=== PATIENT | male | born 1970 | race Caucasian/White ===

== ENCOUNTER 2018-07-14 17:18 | Emergency (ER) | payer SELFPAY ==
[~2018-07-14] VITALS: Ht 188 cm; Wt 75.7 kg
[~2018-07-14 17:18] MED LIST: NAPR-1071 PO
[2018-07-14] MEDS ORDERED: BUSPAR (17:26)
[2018-07-14] MEDS ORDERED: [UNRECOGNIZED DRUG - OTHER] (17:27)
--- NOTE | 2018-07-14 17:38 | NUR ---
PT HAS OLD BRUISING UNDER BILAT EYES.
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
[2018-07-14] MEDS ORDERED: HYDROcodone/APAP 7.5 MG/325 MG (LORTAB, LORCET PLUS) TABLET PO STA (19:07)
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
[2018-07-14] MEDS ORDERED: ACHD5005 PO (19:26)
[2018-07-14 19:32] VITALS: BP 157/104
== END 2018-07-14 19:32 | disposition home or self-care (01) ==
LOC: EDUNIT# 17:18 → ER 17:19
DX: S02.2XXA Fracture of nasal bones, initial encounter for closed fracture (principal); H53.8 Other visual disturbances; R40.2142 Coma scale, eyes open, spontaneous, at arrival to emergency department; R40.2252 Coma scale, best verbal response, oriented, at arrival to emergency department; R40.2362 Coma scale, best motor response, obeys commands, at arrival to emergency department; F17.200 Nicotine dependence, unspecified, uncomplicated; Y04.0XXA Assault by unarmed brawl or fight, initial encounter
CPT/HCPCS: 70450; 70486

== ENCOUNTER 2019-01-30 22:08 | Emergency (ER) | payer OTHER ==
[~2019-01-30] VITALS: Ht 188 cm; Wt 116.6 kg
[~2019-01-30 22:08] MED LIST changes: +ACHD5005 PO; +BUSPAR; +[UNRECOGNIZED DRUG - OTHER]
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
[2019-01-30 22:41] LABS: BASOPHILS % (AUTO) 1 % (0-10); EOSINOPHILS # (AUTO) 0.4 10^3/uL (0.0-0.3); EOSINOPHILS % (AUTO) 5 % (0-10); HEMATOCRIT 43 % (40-54); HEMOGLOBIN 14.9 G/DL (13.3-17.7); LYMPHOCYTES # (AUTO) 2.8 X 10^3 (1.0-4.0); LYMPHOCYTES % (AUTO) 34 % (12-44); MEAN CORPUSCULAR HEMOGLOBIN 30 PG (25-34); MEAN CORPUSCULAR HGB CONC 35 G/DL (32-36); MEAN CORPUSCULAR VOLUME 86 FL (80-99); MEAN PLATELET VOLUME 9.3 FL (7.4-10.4); MONOCYTES # (AUTO) 0.8 X 10^3 (0.0-1.0); MONOCYTES % (AUTO) 9 % (0-12); NEUTROPHILS # (AUTO) 4.2 X 10^3 (1.8-7.8); NEUTROPHILS % (AUTO) 51 % (42-75); PLATELET COUNT 237 10^3/uL (130-400); RED CELL DISTRIBUTION WIDTH 13.5 % (10.0-14.5); WHITE BLOOD COUNT 8.3 10^3/uL (4.3-11.0)
[2019-01-30] MEDS ORDERED: FAMOTIDINE 20MG/2ML IV (PEPCID) IV STA (23:03)
[2019-01-30 23:04] LABS: INR 1.1 (0.8-1.4); PROTHROMBIN TIME PATIENT 14.2 SEC (12.2-14.7)
[2019-01-30 23:10] LABS: ALANINE AMINOTRANSFERASE 27 U/L (0-55); ALBUMIN 3.8 GM/DL (3.2-4.5); ALKALINE PHOSPHATASE 100 U/L (40-136); BILIRUBIN,TOTAL 0.2 MG/DL (0.1-1.0); BUN/CREATININE RATIO 11; CALCIUM 8.8 MG/DL (8.5-10.1); CARBON DIOXIDE 21 MMOL/L (21-32); CHLORIDE 107 MMOL/L (98-107); CREATININE SERUM 0.79 MG/DL (0.60-1.30); GFR ESTIMATED > 60; GLUCOSE 88 MG/DL (70-105); MAGNESIUM 1.9 MG/DL (1.6-2.4); POTASSIUM 3.6 MMOL/L (3.6-5.0); SODIUM 138 MMOL/L (135-145); TOTAL PROTEIN 6.7 GM/DL (6.4-8.2)
[2019-01-30] MEDS ORDERED: ANTACID SUSP 30 ML UDC (MYLANTA) PO ONE (23:15)
[2019-01-30] MEDS ORDERED: LIDOCAINE 2% VISCOUS 15 ML UDC PO ONE (23:15)
[2019-01-31 01:35] VITALS: BP 141/94
--- NOTE | 2019-01-31 07:02 | Diagnostic Imaging Report ---
Indication: Chest pain. Examination: Single view chest 01/30/2019. Comparison: 10/20/2015 Findings: The heart is unremarkable. There is pulmonary vascular congestion. Bibasilar atelectasis. No significant effusions or pneumothorax. Impression: 1. Pulmonary vascular congestion. 2. Mild bibasilar atelectasis. Dictated by: Dictated on workstation # [id number]
== END 2019-01-31 01:37 | disposition home or self-care (01) ==
LOC: EDUNIT# 22:08 → ER 22:10
DX: R07.9 Chest pain, unspecified (principal); R10.13 Epigastric pain
CPT/HCPCS: 36415; 71045; 80053; 83735; 83874; 84484; 85025; 85610; 85730; 93005; 93041

== ENCOUNTER → 2019-04-21 | Outpatient (REF) ==
--- NOTE | 2019-04-21 10:43 | Diagnostic Imaging Report ---
INDICATION: Left elbow pain. TIME OF EXAM: 10:33 AM 3 views of the left elbow were obtained. FINDINGS: Alignment is normal. No fracture, dislocation or effusion is seen. Tiny well-corticated osseous densities adjacent to the medial epicondyle are noted and appear chronic. IMPRESSION: No acute abnormality is detected. Dictated by: Dictated on workstation # [id number]
== END | disposition home or self-care (01) ==
LOC: OCC 10:10
PROVIDERS: ATTEND Family Medicine
CPT/HCPCS: 73080

== ENCOUNTER 2019-09-03 06:11 | Emergency (ER) | payer SELFPAY ==
[~2019-09-03] VITALS: Ht 187 cm; Wt 115.0 kg
[2019-09-03] MEDS ORDERED: morphine INJ 10 MG/ML 1ML (SYR OR VIAL) IV STA (06:19)
[2019-09-03] MEDS ORDERED: KETOROLAC 30 MG/ML VIAL IVP STA (06:23)
[2019-09-03] MEDS ORDERED: ASPIRIN 81 MG CHEW (CHILDREN'S ASA) PO ONE (06:30)
[2019-09-03 06:32] LABS: BASOPHILS % (AUTO) 0 % (0-10); EOSINOPHILS # (AUTO) 0.5 10^3/uL (0.0-0.3); EOSINOPHILS % (AUTO) 4 % (0-10); HEMATOCRIT 47 % (40-54); HEMOGLOBIN 16.2 G/DL (13.3-17.7); LYMPHOCYTES % (AUTO) 25 % (12-44); MEAN CORPUSCULAR HEMOGLOBIN 29 PG (25-34); MEAN CORPUSCULAR HGB CONC 35 G/DL (32-36); MEAN CORPUSCULAR VOLUME 83 FL (80-99); MEAN PLATELET VOLUME 9.7 FL (7.4-10.4); MONOCYTES # (AUTO) 1.1 X 10^3 (0.0-1.0); MONOCYTES % (AUTO) 9 % (0-12); NEUTROPHILS # (AUTO) 7.8 X 10^3 (1.8-7.8); NEUTROPHILS % (AUTO) 63 % (42-75); PLATELET COUNT 295 10^3/uL (130-400); RED CELL DISTRIBUTION WIDTH 13.6 % (10.0-14.5); WHITE BLOOD COUNT 12.4 10^3/uL (4.3-11.0)
[2019-09-03 06:48] LABS: FIBRIN DEGRADATION PRODUCTS 0.43 UG/ML (0.00-0.49); PROTHROMBIN TIME PATIENT 13.7 SEC (12.2-14.7)
[2019-09-03 06:49] LABS: ALBUMIN 4.1 GM/DL (3.2-4.5); BILIRUBIN,TOTAL 0.5 MG/DL (0.1-1.0); CARBON DIOXIDE 18 MMOL/L (21-32); CHLORIDE 105 MMOL/L (98-107); POTASSIUM 4.6 MMOL/L (3.6-5.0); SODIUM 134 MMOL/L (135-145); TOTAL PROTEIN 7.5 GM/DL (6.4-8.2)
--- NOTE | 2019-09-03 06:55 | Diagnostic Imaging Report ---
EXAM: CHEST 1 VIEW, AP/PA ONLY INDICATION: Chest wall pain. COMPARISON: 01/30/2019. FINDINGS: Normal heart size and central pulmonary vascularity. No focal pulmonary opacity. No pleural effusion or pneumothorax. No acute osseous findings. IMPRESSION: No acute cardiopulmonary findings. Dictated by: Dictated on workstation # [id number]
[2019-09-03] MEDS ORDERED: morphine INJ 10 MG/ML 1ML (SYR OR VIAL) IVP ONE (07:00)
[2019-09-03 07:05] LABS: ALANINE AMINOTRANSFERASE 37 U/L (0-55); ALKALINE PHOSPHATASE 117 U/L (40-136); BUN/CREATININE RATIO 16; CREATININE SERUM 0.93 MG/DL (0.60-1.30); GFR ESTIMATED > 60; GLUCOSE 101 MG/DL (70-105); LIPASE 161 U/L (8-78); MAGNESIUM 2.1 MG/DL (1.6-2.4)
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
[2019-09-03] MEDS ORDERED: LACTATED RINGERS 1,000 ML IV ONE (07:49)
[2019-09-03] MEDS ORDERED: NS 100 ML (IVPB) BAG IV ONE (08:15)
[2019-09-03] MEDS ORDERED: IOHEXOL 350 MG/ML 100 ML (OMNIPAQUE 350) VIAL IV ONE (08:15)
[2019-09-03] MEDS ORDERED: HOLD METFORMIN - RECEIVED CONTRAST 20 ML VIAL IV SCH (08:15)
--- NOTE | 2019-09-03 08:31 | Diagnostic Imaging Report ---
PROCEDURE: CT abdomen and pelvis with contrast. TECHNIQUE: Multiple contiguous axial images were obtained through the abdomen and pelvis after administration of intravenous contrast. Auto Exposure Controls were utilized during the CT exam to meet ALARA standards for radiation dose reduction. INDICATION: Left chest wall pain No prior examinations are available for comparison. FINDINGS: The heart size is normal. Dependent atelectasis in the lung bases. The liver is normal in size without focal lesions. There is no biliary ductal dilatation. Gallbladder is unremarkable. Spleen is normal. Pancreas and adrenal glands are unremarkable. Kidneys normal in appearance. Aorta is nonaneurysmal. Bowel gas pattern is nonspecific. There is no free air. There is no ascites. There are no focal inflammatory changes. The appendix is normal. Bladder is normal. There is no pelvic mass, adenopathy or free fluid. There are mild degenerative changes in the spine. IMPRESSION: No acute abnormality in the abdomen or pelvis. Dictated by: Dictated on workstation # [id number]
[2019-09-03 09:44] VITALS: BP 138/92
== END 2019-09-03 09:44 | disposition home or self-care (01) ==
LOC: EDUNIT# 06:11 → ER 06:16
DX: R07.89 Other chest pain (principal); R74.8 Abnormal levels of other serum enzymes; F17.210 Nicotine dependence, cigarettes, uncomplicated; F12.90 Cannabis use, unspecified, uncomplicated
CPT/HCPCS: 36415; 71045; 74177; 80053; 83690; 83735; 83874; 84484; 85025; 85379; 85610; 85730; 93041

== ENCOUNTER → 2021-07-22 | Outpatient (CLI) | payer BC ==
--- NOTE | 2021-07-22 17:53 | Diagnostic Imaging Report ---
PROCEDURE: MR imaging cervical spine without contrast. TECHNIQUE: Multiplanar, multisequence MR imaging of the cervical spine was performed without contrast. INDICATION: Neck pain COMPARISON: CT from 10/20/2015 FINDINGS: No acute fracture is seen in the cervical spine. Alignment is normal. There is no spondylolisthesis. The disc heights are generally preserved. Surrounding soft tissues demonstrate no acute abnormality. The spinal cord appears normal with no focal lesions. C2-C3: Posterior disc osteophyte complex, asymmetric to the left, with mild to moderate spinal canal stenosis. No foraminal stenosis. C3-C4: Posterior disc osteophyte complex with moderate spinal canal stenosis. This contacts the spinal cord but there is no compression. There is mild right and moderate left foraminal stenosis. C4-C5: Posterior disc osteophyte complex, asymmetric to the right. Moderate spinal canal stenosis with no significant compression of the cord. Moderate right and mild left foraminal stenosis. C5-C6: Posterior disc osteophyte complex. Moderate right foraminal stenosis. No spinal canal or left foraminal stenosis. C6-C7: Mild uncovertebral arthropathy. No spinal canal or foraminal stenosis. C7-T1: No spinal canal or foraminal stenosis. IMPRESSION: 1. Degenerative changes in the cervical spine with moderate spinal canal stenosis at C3-C4 and C4-C5. There is multilevel foraminal stenosis, as described above. No cord lesions are seen. Dictated by: Dictated on workstation # [id number]
== END ==
LOC: RAD 13:15
PROVIDERS: ATTEND Internal Medicine
DX: M48.02 Spinal stenosis, cervical region (principal); M47.22 Other spondylosis with radiculopathy, cervical region
CPT/HCPCS: 72141

== ENCOUNTER 2022-02-05 17:57 | Emergency (ER) | payer SELFPAY ==
[~2022-02-05] VITALS: Ht 187 cm; Wt 134.0 kg
[2022-02-05 18:00] VITALS: BP 155/72
--- NOTE | 2022-02-05 18:22 | ED Lower Extremity ---
General Chief Complaint: Lower Extremity Stated Complaint: RIGHT ANKLE PAIN / SWELLING Nursing Triage Note: ARRIVED VIA AMB TO FT 1 WITH COMPLAINTS OF CONTINUED LEFT ANKLE FOOT/ANKLE PAIN AND SWELLING. NO INJURY. STATES HE HAS HAD BLOOD WORK AND X-RAYS BY DR FERRARI. Source: patient Exam Limitations: no limitations History of Present Illness Date Seen by Provider: Feb 05, 2022 Time Seen by Provider: 18:04 Initial Comments Patient to the ER by private conveyance from home with chief complaint he has been dealing with a couple months of of left ankle and foot pain and swelling. He went to Dr. Mayorga who put him on a diuretic hydrochlorothiazide for his blood pressure and that helped some of the swelling. He gets swelling up to his calf. It is only in his right leg. He is not having any chest pain shortness o f air cough fevers chills or swollen joints. No history of gout. No history of rheumatoid arthritis but he has multiple joints that are inflamed with what he is told is osteoarthritis and he attributes this to having lived hard. He says he gets his medicines from [facility] and is not on an NSAID or DMARDs that he can recall. Allergies and Home Medications Allergies Coded Allergies: No Known Drug Allergies (Unverified , 09/20/15) Patient Home Medication List Home Medication List Reviewed: Yes Hydrocodone Bit/Acetaminophen (Lortab 5 Mg Tablet) 1 Tab Tab, 1-2 EACH PO Q6H PRN for PAIN-MODERATE Prescribed by: CARIE HALL on 07/14/181925 Naproxen (Naprosyn) 500 Mg Tablet, 500 MG PO BID Prescribed by: JANELL POOLE on 09/20/15 2100 [Abiliy] , (Reported) Entered as Reported by: JOSSELINE OLMOS on 07/14/181726 [Buspar] , (Reported) Entered as Reported by: JOSSELINE OLMOS on 07/14/181725 Review of Systems Constitutional: No chills, No diaphoresis EENTM: No ear discharge, No ear pain Respiratory: No cough, No short of breath Cardiovascular: No chest pain, No edema Gastrointestinal: No abdominal pain, No nausea, No vomiting All Other Systems Reviewed Negative Unless Noted: Yes Past Aialfop-Hemhev-Bldjzt Hx Patient Social History Tobacco Use?: Yes Smoking Status: Current Everyday Smoker Substance use?: No Alcohol Use?: No Immunizations Up To Date Tetanus Booster (TDap): Unknown PED Vaccines UTD: Yes COVID19 Vaccine Lard Mixer: MODERNA Seasonal Allergies Seasonal Allergies: No Past Medical History Surgeries: Yes Ear Surgery, Orthopedic Respiratory: No Cardiac: No Neurological: No Reproductive Disorders: No Genitourinary: No Gastrointestinal: No Musculoskeletal: No Endocrine: No HEENT: No Cancer: No Psychosocial: No Integumentary: No Blood Disorders: No Adverse Reaction/Blood Tranf: No Family Medical History Hypertension Physical Exam Vital Signs Vital Signs - First Documented 02/05/22 18:00 Temp 37.0 Pulse 72 Resp 16 B/P (MAP) 155/72 (99) Pulse Ox 96 O2 Delivery Room Air Capillary Refill : Less Than 3 Seconds Height, Weight, BMI Height: 6'2.00" Weight: 257lbs. 0oz. 116.470609uy; 38.00 BMI Method:Stated General Appearance: WD/WN, no apparent distress HEENT: PERRL/EOMI, pharynx normal Neck: full range of motion, normal inspection Cardiovascular: normal peripheral pulses, regular rate, rhythm Respiratory: no respiratory distress, no accessory muscle use Gastrointestinal: non tender, soft Ankles: left ankle non-tender; bilateral ankle normal inspection; left ankle normal range of motion; bilateral ankle no evidence of injury; right ankle bone tenderness (Minimal tenderness along the posterior medial malleolus of the right ankle without any edema, crepitus or grating.), right ankle swelling (Scant soft tissue swelling), right ankle other (Minimal range of motion in the right ankle, similar to left) Feet: left foot non-tender; bilateral foot normal inspection, bilateral foot normal range of motion, bilateral foot no evidence of injury; right foot soft tissue tenderness (Tenderness to palpation on the plantar portion of the foot anterior to the calcaneus along the plantar fascia) Neurologic/Tendon: normal sensation, responds to pain Progress/Results/Core Measures Results/Orders My Orders Orders - SANDRA CHAPA Ankle, Right, 3 Views (02/05/22 18:16) Vital Signs/I&O 02/05/22 18:00 Temp 37.0 Pulse 72 Resp 16 B/P (MAP) 155/72 (99) Pulse Ox 96 O2 Delivery Room Air Blood Pressure Mean: 99 Progress Progress Note : Time: 18:21 Progress Note Suspect he has plantar fasciitis. He is not on amlodipine. We have ordered an x-ray to look for signs of severe arthritis which might lead to a more extensive work-up. Otherwise her going to do some teaching on stretching of the plantar fascia, instruct him to obtain orthotics and/or follow-up with podiatry. Will encourage a 2 to 4-week trial of NSAIDs. Diagnostic Imaging Diagonstic Imaging: Xray Plain Films/CT/US/NM/MRI: ankle (Right) Comments [facility] [place], [place] NAME: ELSA WOODRUFF [facility] REC#: [id number] PT STATUS: REG ER : 1970 PHYSICIAN: SANDRA CHAPA MD ADMIT DATE: 02/05/22/ER Draft Date of Exam:02/05/22 ANKLE, RIGHT, 3 VIEWS EXAMINATION: Right ankle radiographs, 3 views. COMPARISON: None. HISTORY: 51-year-old male, right ankle pain and swelling. FINDINGS: There are well-corticated ossifications adjacent to the tip of the medial malleolus likely relating to the sequela of remote prior injury. There are also areas of ossification in the region of the syndesmosis likely reflecting prior injury. The alignment of the ankle mortise is unremarkable. There is no identified acute fracture. There is no tibiotalar joint effusion. There is mild degenerative type enthesopathy at the Achilles tendon insertion. Joint spaces appear fairly well-preserved. IMPRESSION: No identified acute bony abnormality of the right ankle. Dictated on workstation # [id number] Dict: 02/05/22 1829 Trans: 02/05/22 1831 [facility] [id number] Interpreted by: DOLLY AREVALO MD Electronically signed by: Reviewed: Reviewed by Me Departure Impression Primary Impression: Plantar fasciitis Disposition: 01 HOME, SELF-CARE Condition: Stable Departure-Patient Inst. Decision time for Depature: 18:41 Referrals: ESTUARDO MOORE DPM NO,LOCAL PHYSICIAN (PCP) Primary Care Physician JESSE PATINO DPM Patient Instructions: Plantar Fasciitis Exercises Add. Discharge Instructions: You do have some inflammation of the plantar fascia which is a large fibrous band going along the bottom of your foot and that may be contributing to the s welling in your feet running up your leg. Perform the exercises as outlined in the handout several times a day. Follow-up with an nuclear fuels reclamation engineer such Dr. Patino or Dr. Moore by calling for an appointment in the next week or 2. I suggest getting fitted for some orthotics. Start using naproxen 500 mg twice a day for the next 2 to 4 weeks to reduce the inflammation in your foot which is leading to the swelling. All discharge instructions reviewed with patient and/or family. Voiced understanding. Scripts Naproxen (Naprosyn) 500 Mg Tablet 500 MG PO BID for 14 Days, #30 TAB 0 Refills Prov: SANDRA CHAPA 02/05/22 Work/School Note: Work Release Form Date Seen in the Emergency Department: Feb 05, 2022 Return to Work: Feb 06, 2022 Restrictions: No Restrictions Copy Copies To 1: ESTUARDO MOORE DPM; JESSE PATINO DPM, TITUS J Feb 05, 2022 18:22
--- NOTE | 2022-02-05 18:31 | Diagnostic Imaging Report ---
EXAMINATION: Right ankle radiographs, 3 views. COMPARISON: None. HISTORY: 51-year-old male, right ankle pain and swelling. FINDINGS: There are well-corticated ossifications adjacent to the tip of the medial malleolus likely relating to the sequela of remote prior injury. There are also areas of ossification in the region of the syndesmosis likely reflecting prior injury. The alignment of the ankle mortise is unremarkable. There is no identified acute fracture. There is no tibiotalar joint effusion. There is mild degenerative type enthesopathy at the Achilles tendon insertion. Joint spaces appear fairly well-preserved. IMPRESSION: No identified acute bony abnormality of the right ankle. Dictated by: Dictated on workstation # [id number]
[2022-02-05] MEDS ORDERED: NAPR-1071 PO (18:50)
== END 2022-02-05 18:54 | disposition home or self-care (01) ==
LOC: EDUNIT# 17:57 → ER 17:58
DX: M72.2 Plantar fascial fibromatosis (principal); F17.200 Nicotine dependence, unspecified, uncomplicated
CPT/HCPCS: 73610; 99281

== ENCOUNTER 2022-02-12 20:11 | Emergency (ER) | payer SELFPAY ==
[2022-02-12 20:20] VITALS: BP 139/96
--- NOTE | 2022-02-12 21:13 | Diagnostic Imaging Report ---
CLINICAL INDICATION: Patient with foot pain from dropping log on it. EXAM: X-ray of the right foot, 3 views. COMPARISON: None. FINDINGS: Right foot shows no acute fracture or dislocation. There are degenerative spurs involving the 1st MTP joint. There are small chronic calcifications seen just to the tibial talar joint region. There is small calcaneal spur at the Achilles attachment. There is spurring of the dorsal midfoot. IMPRESSION: There is no acute fracture or dislocation. Dictated by: Dictated on workstation # [id number]
--- NOTE | 2022-02-12 22:02 | ED Lower Extremity ---
General Chief Complaint: Lower Extremity Stated Complaint: RIGHT FOOT PAIN Nursing Triage Note: pt reports injuring his right foot on thursday rolling a log over. reports seen here thursday for pain in the same foot prior to the injury. pt ambulated to room without issues in gait Source: patient Exam Limitations: no limitations History of Present Illness Date Seen by Provider: Feb 12, 2022 Time Seen by Provider: 18:34 Initial Comments This 51-year-old gentleman presents to the emergency room with significant pain to the plantar surface of the right foot. He was seen in this ER on February 05 and was suspected of having plantar fasciitis at that time. X-ray of the ankle was unremarkable. See documentation from that visit for more details. Patient reports he has been using orthotics with arch supports but that makes the pain worse. He reports using some tramadol (Ultram) or pain. On February 06, the day after his ER visit, he was pushing off of his foot while moving a log when he felt a sudden popping/tearing in the foot followed by severe exacerbation of pain. He has had more intense pain ever since. He would like it reevaluated. Allergies and Home Medications Allergies Coded Allergies: No Known Drug Allergies (Unverified , 09/20/15) Patient Home Medication List Home Medication List Reviewed: Yes Hydrocodone Bit/Acetaminophen (Lortab 5 Mg Tablet) 1 Tab Tab, 1-2 EACH PO Q6H PRN for PAIN-MODERATE Prescribed by: CARIE HALL on 07/14/181925 Naproxen (Naprosyn) 500 Mg Tablet, 500 MG PO BID Prescribed by: JANELL POOLE on 09/20/152099 Naproxen (Naprosyn) 500 Mg Tablet, 500 MG PO BID Prescribed by: SANDRA CHAPA on 02/05/22 185 [Abiliy] , (Reported) Entered as Reported by: JOSSELINE OLMOS on 07/14/181726 [Buspar] , (Reported) Entered as Reported by: JOSSELINE OLMOS on 07/14/181725 Review of Systems Constitutional: no symptoms reported EENTM: no symptoms reported Respiratory: no symptoms reported Cardiovascular: no symptoms reported Gastrointestinal: no symptoms reported Genitourinary: no symptoms reported Musculoskeletal: see HPI Skin: no symptoms reported Psychiatric/Neurological: No Symptoms Reported Past Qmfrtnp-Ccvrwz-Eniszo Hx Patient Social History Tobacco Use?: No Substance use?: No Alcohol Use?: No Pt feels they are or have been: No Immunizations Up To Date Tetanus Booster (TDap): Unknown PED Vaccines UTD: Yes Influenza Vaccine Up-to-Date: Yes; Up-to-Date First/Initial COVID19 Vaccinat: unknown Second COVID19 Vaccination Anibal: unknown COVID19 Vaccine Crepe Sole Wire Brusher: moderna Seasonal Allergies Seasonal Allergies: No Past Medical History Surgeries: Yes Ear Surgery, Orthopedic Respiratory: No Cardiac: No Neurological: No Reproductive Disorders: No Genitourinary: No Gastrointestinal: No Musculoskeletal: Yes (Planter fasciitis) Endocrine: No HEENT: No Cancer: No Psychosocial: No Integumentary: No Blood Disorders: No Adverse Reaction/Blood Tranf: No Family Medical History Hypertension Physical Exam Vital Signs Vital Signs - First Documented 02/12/22 20:20 Pulse 88 Resp 18 B/P (MAP) 139/96 (110) Capillary Refill : Height, Weight, BMI Height: 6'2.00" Weight: 257lbs. 0oz. 116.534847yk; 38.00 BMI Method:Stated General Appearance: WD/WN, no apparent distress, obese Ankles: bilateral ankle non-tender, bilateral ankle normal inspection, bilateral ankle normal range of motion, bilateral ankle no evidence of injury, bilateral ankle swelling (Mild edema) Feet: right foot other (Pain with palpation of the plantar surface of the right mid foot. Structurally flat feet. Pronation noted bilaterally.) Neurologic/Psychiatric: no motor/sensory deficits, alert, normal mood/affect, oriented x 3 Skin: normal color, warm/dry Progress/Results/Core Measures Results/Orders My Orders Orders - DAYRON MILLIGAN MD Foot, Right, 3 View (02/12/22 20:46) Steplite (02/12/22 22:02) Vital Signs/I&O 02/12/22 20:20 Pulse 88 Resp 18 B/P (MAP) 139/96 (110) Blood Pressure Mean: 110 Progress Progress Note : Progress Note I suspect the patient experienced a tear of the plantar fascia the day after his prior ER visit. We discussed the treatment course for this injury and an information handout was provided. I advised NSAID medication. I advised he stop using the arch supports as this will only exacerbate pain with his flatfoot structure. Instead, I recommended a night splint as well as a walking boot for daytime use. A walking boot was dispensed to the patient. X-ray of the foot shows no bony injury. Diagnostic Imaging Diagonstic Imaging: Xray Plain Films/CT/US/NM/MRI: chest Comments NAME: ELSA WOODRUFF MED REC#: [id number] PT STATUS: DEP ER : 1970 PHYSICIAN: DAYRON MILLIGAN MD ADMIT DATE: 02/12/22/ER Signed Date of Exam:02/12/22 FOOT, RIGHT, 3 VIEW CLINICAL INDICATION: Patient with foot pain from dropping log on it. EXAM: X-ray of the right foot, 3 views. COMPARISON: None. FINDINGS: Right foot shows no acute fracture or dislocation. There are degenerative spurs involving the 1st MTP joint. There are small chronic calcifications seen just to the tibial talar joint region. There is small calcaneal spur at the Achilles attachment. There is spurring of the dorsal midfoot. IMPRESSION: There is no acute fracture or dislocation. Dictated by: Dictated on workstation # [id number] Dict: 02/12/222109 Trans: 02/12/222347 PJE [id number] Interpreted by: ANEL GONZALEZ MD Electronically signed by: ANEL GONZALEZ MD 02/12/222347 Departure Impression Primary Impression: Plantar fasciitis Additional Impression: Right foot pain Disposition: 01 HOME, SELF-CARE Condition: Stable Departure-Patient Inst. Decision time for Depature: 22:05 Referrals: ESTUARDO FERRARI MD (PCP/Family) Primary Care Physician Patient Instructions: Heel Pain Caused by Plantar Fasciitis, Plantar Fasciitis Exercises Add. Discharge Instructions: You likely have plantar fasciitis and may have developed a plantar fascial tear. Treatment for this is mainly supportive. For pain you may take ibuprofen up to 600 mg every 6 hours as needed. Add Ty lenol (acetaminophen) up to 1000 mg every 6 hours as needed for additional pain relief. If these [id number] pain medications are not sufficient, you may add the tramadol (Ultram) that was previously prescribed. Ensure you do have good supportive footwear that provides medial support (support around the inner part of the heel and ankle). Use of the walking boot provided in the ER may help reduce strain on the plantar fascia. Sometimes using a night splint purchased [id number] from a pharmacy or medical supply store can help keep your foot at a right ankle while you sleep, reducing tension on the plantar fascia as it heals. Consider obtaining a night splint and using it every night when you sleep. Alternatively, you can sleep in the walking boot provided in the ER. Consider going to a specialty running store or shoe store such as [employer] in [place] to have your foot analyzed and to get you fitted with appropriate footwear. If symptoms are not rapidly improving over the next couple of weeks, please follow-up with your primary care provider for further direction. Referral to a [employer] wafers marker may be appropriate. Return to the ER if you have worsening symptoms despite following these instructions. All discharge instructions reviewed with patient and/or family. Voiced understanding. Copy Copies To 1: ESTUARDO FERRARI MD, JOSHUA T MD Feb 12, 2022 22:02
== END 2022-02-12 22:15 | disposition home or self-care (01) ==
LOC: EDUNIT# 20:11 → ER 20:12
DX: M72.2 Plantar fascial fibromatosis (principal); E66.9 Obesity, unspecified; Z68.38 Body mass index [BMI] 38.0-38.9, adult
CPT/HCPCS: 73630; 99282; L2114